=== PATIENT | female | born 1970 | race Two or more races ===

== ENCOUNTER 2024-02-09 05:30 | Day surgery (SDC) | payer OTHER ==
[2024-02-07 10:59] LABS: HEMATOCRIT 39.5 % (36.0-45.00); HEMOGLOBIN 13.2 g/dL (12.0-15.00); MEAN CELL VOLUME 88.5 fL (80.00-100.00); MEAN CORPUSCULAR HEMOGLOBIN 29.6 pg (27.00-32.0); MEAN CORPUSCULAR HGB CONC 33.4 g/dl (32.0-36.0); PLATELET COUNT 233 K/uL (150-450); RED BLOOD COUNT 4.46 M/uL (4.00-6.00); RED CELL DISTRIBUTION WIDTH 13.4 % (11.5-14.5)
[2024-02-07 11:05] LABS: PH,URINE 5.5 (5.0-8.0); URINE APPEARANCE Clear; URINE BILIRRUBIN Negative (NEGATIVE); URINE BLOOD Trace; URINE COLOR Yellow; URINE GLUCOSE Negative (NEGATIVE); URINE KETONE Negative (NEGATIVE); URINE LEUKOCYTE Negative; URINE NITRATE Negative; URINE PROTEIN Negative (NEGATIVE); URINE UROBILINOGEN 0.2 E.U./dl
[2024-02-07 11:10] LABS: URINE BACTERIA 173.8 uL (0.0-1933); URINE EPITHELIAL CELLS 16.8 uL (0.0-38.8); URINE RBC 17.7 uL (0.0-20.8); URINE WBC 15.4 uL (0.0-23.2)
[2024-02-07 11:33] LABS: INR 1.05; PARTIAL THROMBOPLASTIN TIME 29.5 SECONDS (22.0-34.0); PROTHROMBIN TIME 11.4 SECONDS (9.0-11.5)
[2024-02-07 11:50] LABS: ALBUMIN 3.9 gm/dL (3.4-5.0); BILIRUBIN TOTAL 0.36 mg/dL (0.3-1.2); CALCIUM 9.8 mg/dL (8.5-10.1); CREATININE SERUM 0.66 mg/dL (0.55-1.02); GFR 94.04; GLOBULINA 3.9 G/DL (2.4-3.5); POTASSIUM 4.2 mEq/L (3.5-5.1); TOTAL PROTEIN 7.8 gm/dL (6.4-8.2)
[~2024-02-09 05:30] MED LIST: TOPROL XL50 M1
[2024-02-09] MEDS ORDERED: CEFTRIAXONE SODIUM 2,000 MG VIAL ONE (07:31)
[2024-02-09] MEDS ORDERED: METRONIDAZOLE/SODIUM CHLORIDE 500 MG/100 ML PIGGYBACK IV ONE (07:32)
[2024-02-09] MEDS ORDERED: HEMOSTATIC MATRIX 1 KIT KIT TOP ONE (09:03)
[2024-02-09] MEDS ORDERED: BUPIVACAINE HCL/Mpf 0.5% 10ML VIAL ONE (09:03)
[2024-02-09] MEDS ORDERED: POVIDONE-IODINE 118 ML BOTT TOP ONE (09:03)
[2024-02-09] MEDS ORDERED: DIBUCAINE 30 GM TUBE ONE (09:03)
[2024-02-09] MEDS ORDERED: LIDOCAINE HCL 1%/EPINEPHRINE 20ML VIAL IJ ONE (09:03)
[2024-02-09] MEDS ORDERED: PERCOCET 5-3251 EACH PO (09:53)
[2024-02-09] MEDS ORDERED: RECTICARE30 GM TOP (09:54)
[2024-02-09] MEDS ORDERED: MOXIFLOXACIN H400 MG PO (09:54)
== END 2024-02-09 16:15 | disposition home or self-care (01) ==
LOC: CIR.AMB 05:30
PROVIDERS: ATTEND Surgery
DX: C20 Malignant neoplasm of rectum (principal); R19.5 Other fecal abnormalities; R19.4 Change in bowel habit; I10 Essential (primary) hypertension